=== PATIENT | male | born 1985 | race Caucasian/White ===

== ENCOUNTER 2021-11-12 15:38 | Emergency (ER) | payer SELFPAY ==
[~2021-11-12] VITALS: Ht 172.7 cm; Wt 63.6 kg
[2021-11-12 16:37] VITALS: BP 131/98
== END 2021-11-12 16:43 | disposition home or self-care (01) | DRG 728 ==
LOC: ED 15:38
DX: A64 Unspecified sexually transmitted disease (principal)
CPT/HCPCS: J0561